=== PATIENT | female | born 1965 | race Caucasian/White ===

== ENCOUNTER 2018-09-24 10:40 | Emergency (ER) | payer SELFPAY ==
[2018-09-24 10:48] VITALS: BP 159/84
[2018-09-24] MEDS ORDERED: NEOMYCIN/POLYMYX/HC OTIC DROPS RIGHTEAR STA (12:09)
--- NOTE | 2018-09-24 12:09 | ED Physician Documentation ---
PD HPI HEENT - Stated complaint Stated Complaint: BILAT EAR PX - Chief complaint Chief Complaint: Heent - History obtained from History obtained from: Patient, Family - History of Present Illness Timing - onset: How many weeks ago (2) Timing - duration: Weeks (2) Timing - details: Gradual onset, Still present, Waxing and waning Location: Right ear, Sinuses Improves: Medication Worsens: Swalllowing Associated symptoms: Fever, Congestion, Swollen nodes, Facial swelling. No: Cough Similar symptoms before: Has not had sx before Recently seen: Not recently seen - Additional information Additional information: 53-year-old female prediabetic who does not going to see the doctor has developed pain in both of her ears. She has pain is worse in the right ear and this is fairly severe. She has pain with any touching of the outside of the year and she has a sensation of fluid in the year. She is subsequently developed some drainage down the back of her throat sinus congestion and no cough. 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 - Present Medications Home Medications: Ambulatory Orders Medication Instructions Recorded Confirmed Amox/Clav 875/125 [Augmentin] 1 each PO Q12H #20 tablet 09/24/18 Neomycin/Polymyx/Hc Otic Drops 4 drops RIGHTEAR TID #1 bottle 09/24/18 [Cortisporin Ear Susp] - Allergies Allergies/Adverse Reactions: Allergies Allergy/AdvReac Type Severity Reaction Status Date / Time albuterol Allergy Anaphylaxis Verified 09/24/18 10:48 Iodine and Iodide Containing Allergy Hives Verified 09/24/18 10:49 Produc - Social History Does the pt smoke?: No Smoking Status: Never smoker Does the pt drink ETOH?: No Does the pt have substance abuse?: No - Immunizations Immunizations are current?: Yes - POLST Patient has POLST: No PD ED PE NORMAL - Vitals Vital signs reviewed: Yes (hypertensive) - General General: Alert and oriented X 3, No acute distress, Well developed/nourished - HEENT HEENT: Atraumatic, PERRL, EOMI, Other (The right ear is tender to pull on the tragus or push on the pinna and there is inflamation into the ear canal. I am not able to see the TM secondary to cerumen and I am not able to remove the cerumen secondary to significant discomfort to the patient. The Left TM is clear and there is no significant pain to palpation of the ear. The pharynx shows deep red to the right tonsillar pillar with exudate and this is not present on the left. 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, No motor deficit, No sensory deficit, Normal speech Eye Opening: Spontaneous Motor: Obeys Commands Verbal: Oriented GCS Score: 15 - Psych Psych: Normal mood, Normal affect Results - Vitals Vitals: Vital Signs - 24 hr 09/24/18 10:45 Temperature 36.1 C L Heart Rate 84 Respiratory 16 Rate Blood Pressure 159/84 H O2 Saturation 97 Oxygen O2 Source Room air - Labs Labs: Laboratory Tests 09/24/18 10:55 Influenza A (Rapid) Negative Influenza B (Rapid) Negative PD MEDICAL DECISION MAKING - ED course Complexity details: considered differential, d/w patient, d/w family ED course: 53-year-old female with right otitis externa that is significantly painful and a lot of swelling in the canal she also has inflammation draining down the right side of her throat right behind the right tonsillar pillar consistent with drainage from the eustachian tube on that side. I am unable to see the TM on that side I suspect there is infection in the middle ear itself as well. A Munoz wick is placed into the ear and Cortisporin otic suspension is instilled. We will place her on some oral antibiotic as well. Departure - Departure Disposition: 01 Home, Self Care Clinical Impression: Otitis externa Qualifiers: Otitis externa type: unspecified type Chronicity: acute Laterality: right Qualified Code(s): H60.501 - Unspecified acute noninfective otitis externa, right ear Otitis media Qualifiers: Otitis media type: suppurative Chronicity: acute Laterality: right Recurrence: not specified as recurrent Spontaneous tympanic membrane rupture: without spontaneous rupture Qualified Code(s): H66.001 - Acute suppurative otitis media without spontaneous rupture of ear drum, right ear Condition: Stable Instructions: ED Otitis Externa Follow-Up: [facility] [Provider Group] Prescriptions: Amox/Clav 875/125 [Augmentin] 1 each PO Q12H #20 tablet Neomycin/Polymyx/Hc Otic Drops [Cortisporin Ear Susp] 4 drops RIGHTEAR TID #1 bottle
== END 2018-09-24 12:48 | disposition home or self-care (01) ==
LOC: ED 10:40
DX: H60.501 Unspecified acute noninfective otitis externa, right ear (principal); H66.001 Acute suppurative otitis media without spontaneous rupture of ear drum, right ear; E11.9 Type 2 diabetes mellitus without complications
CPT/HCPCS: 87275; 87276; 99283; A9270

== ENCOUNTER 2018-10-23 07:34 | Outpatient (CLI) | payer MEDICAID ==
[2018-10-23 12:34] LABS: BASOPHILS % (AUTO) 0.5 %; EOSINOPHILS # (AUTO) 0.2 10^3/uL (0.0-0.7); EOSINOPHILS % (AUTO) 3.2 %; HGB - HEMOGLOBIN 13.3 g/dL (12.0-16.0); LYMPHOCYTES # (AUTO) 2.7 10^3/uL (1.5-3.5); LYMPHOCYTES % (AUTO) 39.7 %; MEAN CORPUSCULAR HEMOGLOBIN 30.6 pg (27.0-31.0); MEAN CORPUSCULAR HGB CONC 32.9 g/dL (32.0-36.0); MEAN CORPUSCULAR VOLUME 93.1 fL (81.0-99.0); MEAN PLATELET VOLUME 8.3 fL (7.9-10.8); MONOCYTES # (AUTO) 0.6 10^3/uL (0.0-1.0); MONOCYTES % (AUTO) 8.8 %; NEUTROPHILS # (AUTO) 3.3 10^3/uL (1.5-6.6); NEUTROPHILS % (AUTO) 47.8 %; PLT - PLATELET COUNT 278 10^3/uL (130-450); RED BLOOD COUNT 4.34 10^6/uL (4.20-5.40); RED CELL DISTRIBUTION WIDTH 14.1 % (12.0-15.0); WHITE BLOOD COUNT 6.9 x10^3/uL (4.8-10.8)
[2018-10-23 13:39] LABS: HB2 TOTAL 14.4 g/dL; HEMOGLOBIN A1C 0.64 g/dL; HEMOGLOBIN A1C % 6.2 % (4.6-6.2)
[2018-10-23 13:50] LABS: ALBUMIN 3.5 g/dL (3.2-5.5); ALBUMIN/GLOBULIN RATIO 0.9 (1.0-2.2); ALKALINE PHOSPHATASE 103 IU/L (42-121); ALT ALANINE AMINOTRANSFERASE 18 IU/L (10-60); AST ASPARTATE AMINOTRANSFERASE 20 IU/L (10-42); BILIRUBIN,TOTAL 0.3 mg/dL (0.2-1.0); BUN - BLOOD UREA NITROGEN 19 mg/dL (6-20); CALCIUM 8.9 mg/dL (8.5-10.3); CARBON DIOXIDE - CO2 28 mmol/L (21-32); CHLORIDE 105 mmol/L (101-111); CHOL/HDL RATIO 5.1 (<4.4); CHOLESTEROL 210 mg/dL; CREATININE 0.8 mg/dL (0.4-1.0); GFR - MDRD 76 (>89); GLUCOSE 123 mg/dL (70-100); HDL CHOLESTEROL 41 mg/dL; LDL CHOLESTEROL,CALCULATED 142 mg/dL; LDL/HDL RATIO 3.5 (<4.4); SODIUM 142 mmol/L (135-145); TOTAL PROTEIN 7.5 g/dL (6.7-8.2); VLDL CHOLESTEROL 27 mg/dL
[2018-10-23 13:59] LABS: THYROID STIMULATING HORMONE 1.2 uIU/mL (0.34-5.60)
[2018-10-23 14:10] LABS: FOLATE 7.71 ng/mL (5.90 - >24.8)
[2018-10-27 14:01] LABS: ANA SCREEN POSITIVE (NEGATIVE)
== END 2018-10-23 23:59 | disposition home or self-care (01) ==
LOC: LAB.N 07:34
PROVIDERS: ATTEND Nurse Practitioner
DX: E78.2 Mixed hyperlipidemia (principal); E55.9 Vitamin D deficiency, unspecified; R53.83 Other fatigue; R73.03 Prediabetes; E04.1 Nontoxic single thyroid nodule
CPT/HCPCS: 36415; 80050; 80061; 82306; 82607; 82746; 83036; 83721; 86038

== ENCOUNTER 2018-11-04 13:36 | Outpatient (CLI) | payer MEDICAID | END 2018-11-04 13:37 | disposition home or self-care (01) | LOC: DI.N 13:36 | PROVIDERS: ATTEND Nurse Practitioner | DX: Z12.31 Encounter for screening mammogram for malignant neoplasm of breast (principal) | CPT/HCPCS: 77067 ==

== ENCOUNTER 2018-12-11 07:36 | Outpatient (CLI) | payer MEDICAID ==
--- NOTE | 2018-12-11 12:23 | Ultrasound Report ---
Reason: THYROID NODULE,RIGHT Procedure Date: 12/11/2018 Accession Number: [id number] / [id number] Procedure: US - Head or Neck Soft Tissue CPT Code: FULL RESULT: EXAM: THYROID ULTRASOUND EXAM DATE: 12/11/2018 08:23 AM. CLINICAL HISTORY: Thyroid nodule, right. COMPARISON: None. TECHNIQUE: Real time sonographic imaging of the thyroid was performed by the purchasing director. Multiple employee relations representative static images were saved for review. FINDINGS: THYROID GLAND: Right Lobe: 5.5 x 2.6 x 2.4 cm, volume 17.9 cc. Normal background echotexture. Right Lobe Nodules: Superior pole 2.8 x 2.0 x 2.3 predominantly cystic nodule and 1.4 x 1.1 x 1.5 cm inferior pole cyst. Left Lobe: 5.4 x 2.0 x 1.3 cm, volume 7.3 cc. Normal background echotexture. Left Lobe Nodules: Tiny cyst as well as a 1.2 x 0.9 x 1.1 cm cyst in the upper pole. Isthmus: 0.7 cm AP. Isthmic Nodules: None. LYMPH NODES: No adenopathy demonstrated in the central or lateral compartment. OTHER: None. IMPRESSION: Cysts in the thyroid appear simple, and therefore benign. The right superior pole nodule warrants tissue sampling by size criteria. According to the patient, fine-needle aspiration sampling with benign pathology results was performed in [place] 1.5 years ago. If this is the case, no further follow-up is required. Management recommendations are based on 2015 [place] [employer] Management Guidelines for Adult Patients with Thyroid Nodules and Differentiated Thyroid Cancer. RADIA
== END 2018-12-11 07:37 | disposition home or self-care (01) ==
LOC: DI 07:36
PROVIDERS: ATTEND Nurse Practitioner
DX: E04.1 Nontoxic single thyroid nodule (principal)
CPT/HCPCS: 76536

== ENCOUNTER 2018-12-22 10:33 | Outpatient (CLI) | payer MEDICAID | END 2018-12-22 10:34 | disposition home or self-care (01) | LOC: SC 10:33 | PROVIDERS: ATTEND Internal Medicine Pulmonary Disease | DX: G47.33 Obstructive sleep apnea (adult) (pediatric) (principal) | CPT/HCPCS: 99203; 99212 ==

== ENCOUNTER 2019-01-08 10:25 | Outpatient (CLI) | payer MEDICAID ==
--- NOTE | 2019-01-08 12:24 | XRAY Report ---
Reason: LUMBAR Procedure Date: 01/08/2019 Accession Number: [id number] / [id number] Procedure: XRN - Lumbar Spine 2 View CPT Code: FULL RESULT: EXAM: LUMBOSACRAL SPINE RADIOGRAPHY EXAM DATE: 01/08/2019 10:49 AM. CLINICAL HISTORY: Pain for 2 weeks. No trauma. COMPARISONS: None. TECHNIQUE: 3 views. FINDINGS: Alignment: Normal. No spondylolisthesis or scoliosis. Bones: Five [id number] lumbar vertebral bodies are present. No fractures or bone lesions. Disks: Normal. Disk heights are maintained. Facets: Mild facet arthropathy seen at L4 and L5. Sacroiliac Joints: Unremarkable. Soft Tissues: Normal. The visualized bowel gas pattern is normal. IMPRESSION: Mild degenerative changes. RADIA
== END 2019-01-08 10:26 | disposition home or self-care (01) ==
LOC: DI.N 10:25
PROVIDERS: ATTEND Family Medicine
DX: M47.816 Spondylosis without myelopathy or radiculopathy, lumbar region (principal)
CPT/HCPCS: 72100

== ENCOUNTER 2019-02-01 19:21 | Outpatient (CLI) | payer MEDICAID | END 2019-02-01 19:22 | disposition home or self-care (01) | LOC: SC 19:21 | PROVIDERS: ATTEND Internal Medicine Pulmonary Disease | DX: G47.61 Periodic limb movement disorder (principal) | CPT/HCPCS: 95810 ==

== ENCOUNTER 2019-02-06 11:43 | Outpatient (CLI) | payer MEDICAID | END 2019-02-06 11:44 | disposition home or self-care (01) | LOC: RT 11:43 | PROVIDERS: ATTEND Internal Medicine Gastroenterology | DX: I10 Essential (primary) hypertension (principal) | CPT/HCPCS: 93005 ==

== ENCOUNTER 2019-02-10 12:41 | Day surgery (SDC) | payer MEDICAID ==
--- NOTE | 2019-02-10 13:15 | ANESTHESIA ---
Pre-Anesthesia VS, & Labs - Diagnosis gerd, screening - Procedure egd, colonoscopy Vital Signs: Temp Pulse Resp BP Pulse Ox 36.6 C 88 12 129/60 97 02/10/19 13:06 02/10/19 13:06 02/10/19 13:06 02/10/19 13:06 02/10/19 13:06 Height 5 ft 4 in Weight (kg) 138.8 kg Body Mass Index 48.0 - NPO >8 hours - Is Patient ?: Not Applicable Home Medications and Allergies Home Medications: Ambulatory Orders Duloxetine HCl [Cymbalta] 60 mg PO DAILY 02/06/19 Gabapentin 300 mg PO QPM 02/06/19 Ibuprofen [Motrin Ib] 200 mg PO Q6H PRN 02/06/19 Lisinopril 5 mg PO DAILY 02/06/19 Meloxicam 15 mg PO DAILY 02/06/19 Metformin HCl 500 mg PO BID 02/06/19 Methocarbamol [Robaxin-750] 750 mg PO QID PRN 02/06/19 Omega3/Dha/Epa/Fish Oil/Vit D3 [Fish Oil-Vit D3 Softgel] 1 each PO DAILY 02/06/19 Omeprazole 20 mg PO DAILY 02/06/19 Ranitidine HCl [Acid Control] 150 mg PO DAILY PRN 02/06/19 Simvastatin 10 mg PO QPM 02/06/19 Duloxetine HCl [Cymbalta] 60 mg PO DAILY 02/06/19 Gabapentin 300 mg PO QPM 02/06/19 Ibuprofen [Motrin Ib] 200 mg PO Q6H PRN 02/06/19 Lisinopril 5 mg PO DAILY 02/06/19 Meloxicam 15 mg PO DAILY 02/06/19 Metformin HCl 500 mg PO BID 02/06/19 Methocarbamol [Robaxin-750] 750 mg PO QID PRN 02/06/19 Omega3/Dha/Epa/Fish Oil/Vit D3 [Fish Oil-Vit D3 Softgel] 1 each PO DAILY 02/06/19 Omeprazole 20 mg PO DAILY 02/06/19 Ranitidine HCl [Acid Control] 150 mg PO DAILY PRN 02/06/19 Simvastatin 10 mg PO QPM 02/06/19 Allergies/Adverse Reactions: Allergies Allergy/AdvReac Type Severity Reaction Status Date / Time albuterol Allergy Anaphylaxis Verified 09/24/18 10:48 Iodine and Iodide Containing Allergy Hives Verified 09/24/18 10:49 Produc niacin Allergy Hives Verified 02/06/19 12:03 Anes History & Medical History - Anesthetic History Anesthesia Complications: reports: No previous complications Family history of Anesthesia Complications: Denies Family history of Malignant Hyperthermia: Denies - Medical History Cardiovascular: reports: Hypertension, High cholesterol Pulmonary: reports: Asthma, Shortness of breath, Sleep apnea Gastrointestinal: reports: GERD Urinary: reports: Other Musculoskeletal: reports: Osteoarthritis, Fibromyalgia, Chronic back pain Endocrine/Autoimmune: reports: Type 2 diabetes, HyPOthyroidism Skin: reports: None Smoking Status: Never smoker - Surgical History General: Cholecystectomy Gynecologic: Tubal ligation Exam General: Alert, Oriented x3, Cooperative, No acute distress Dental: WNL Mouth Openin Fingerbreadth Neck Mobility: Normal Mallampati classification: IV Thyromental Distance: 4-6 cm Respiratory: Lungs clear, Normal breath sounds, No respiratory distress, No accessory muscle use Cardiovascular: Normal S1, Normal S2 Plan Anesthesia Type: MAC Consent for Procedure(s) Verified and Reviewed: Yes Code Status: Attempt Resuscitation ASA classification: 3-Severe systemic disease Is this case an emergency?: No
[2019-02-10] MEDS ORDERED: LIDO GARGLE 30 ML BOTTLE PO ONE (14:26)
[2019-02-10] MEDS ORDERED: LACTATED RINGERS 1,000 ML IV ONE (14:27)
[2019-02-10] MEDS ORDERED: LIDO GARGLE 30 ML BOTTLE ONE (14:31)
[2019-02-10] MEDS ORDERED: LIDOCAINE-MPF 2% 5 ML VIAL IM ONE (15:12)
[2019-02-10] MEDS ORDERED: PROPOFOL 200 MG/20 ML VIAL IVP ONE (15:12)
[2019-02-10 15:37] VITALS: BP 130/64
== END 2019-02-10 12:42 | disposition home or self-care (01) ==
LOC: SDS 12:41
PROVIDERS: ATTEND Internal Medicine Gastroenterology
PROC: 0DJD8ZZ Inspection of Lower Intestinal Tract, Via Natural or Artificial Opening Endoscopic (ICD-10-PCS; 2019-02-10)
PROC: 0DB38ZX Excision of Lower Esophagus, Via Natural or Artificial Opening Endoscopic, Diagnostic (ICD-10-PCS; principal; 2019-02-10 13:45)
PROC: 0DB78ZX Excision of Stomach, Pylorus, Via Natural or Artificial Opening Endoscopic, Diagnostic (ICD-10-PCS; 2019-02-10 13:45)
DX: Z12.11 Encounter for screening for malignant neoplasm of colon (principal); K21.9 Gastro-esophageal reflux disease without esophagitis; K31.9 Disease of stomach and duodenum, unspecified; K57.30 Diverticulosis of large intestine without perforation or abscess without bleeding; I10 Essential (primary) hypertension; J45.909 Unspecified asthma, uncomplicated; E78.2 Mixed hyperlipidemia; G47.33 Obstructive sleep apnea (adult) (pediatric); E03.9 Hypothyroidism, unspecified; E11.42 Type 2 diabetes mellitus with diabetic polyneuropathy; F32.9 Major depressive disorder, single episode, unspecified; E55.9 Vitamin D deficiency, unspecified; F41.9 Anxiety disorder, unspecified; L68.0 Hirsutism; E66.01 Morbid (severe) obesity due to excess calories; Z68.43 Body mass index [BMI] 50.0-59.9, adult; M79.7 Fibromyalgia; G89.29 Other chronic pain; M54.9 Dorsalgia, unspecified; M19.90 Unspecified osteoarthritis, unspecified site; M54.16 Radiculopathy, lumbar region; R79.89 Other specified abnormal findings of blood chemistry; Z79.1 Long term (current) use of non-steroidal anti-inflammatories (NSAID); Z79.84 Long term (current) use of oral hypoglycemic drugs; Z87.891 Personal history of nicotine dependence
CPT/HCPCS: 43239; 45378; A9270; J7120

== ENCOUNTER 2019-03-09 09:15 | Outpatient (CLI) | payer MEDICAID ==
--- NOTE | 2019-03-09 09:45 | CONSULTATION NOTE ---
Information from patient questionnaire entered by Eva Moya. I have reviewed and concur with the information entered by Eva Moya. This document represents the service I personally performed and the decisions made by me, Saadia Brennan MD, [facility]. - History of Present Illness HPI: Ms. Rosario returned for follow up of the sleep study she had on 02/01/19. The polysomnography showed that the patient had slightly reduced sleep efficiency due to sleep onset insomnia. The sleep architecture was abnormal for sleep fragmentation and lack of REM sleep. Respiratory monitoring showed no significant sleep disordered breathing (AHI = 0.0) or hypoxia (antonia oxygen saturation of 93%). The patient slept mostly supine (supine AHI = 0.0; non- supine = 0.00). Snore was loud in intensity. There was mild periodic leg movement of sleep not contributing to the sleep fragmentation. Cardiac rhythm was normal sinus rhythm without significant arrhythmia. No abnormal behavior (parasomnia) observed during the night. The patient was informed of these findings. I explained to her that the sleep study was normal. The patient does not have restless leg syndrome to go along with the mild periodic leg movement of sleep. Initial Delight Sleepiness Scale score: 13 Current Delight Sleepiness Scale score: 16 - Allergies/Medications Allergies albuterol Allergy (Verified 09/24/18 10:48) Anaphylaxis Iodine and Iodide Containing Produc Allergy (Verified 09/24/18 10:49) Hives niacin Allergy (Verified 02/06/19 12:03) Hives Home Medications Cholecalciferol [Vitamin D3] 1 cap PO DAILY PM 02/25/19 [History Confirmed 02/25/19] Ubidecarenone [Co Q-10] 1 cap PO DAILY 02/25/19 [History Confirmed 02/25/19] Allergies and home medications reviewed: No - Review of Systems Review of systems same as previous: Yes - Impression IMPRESSION: 1. Obstructive Sleep Apnea-Hypopnea Syndrome, diagnosed in [place] by a home sleep apnea test (HSAT) but cannot be demonstrated on her recent in- laboratory polysomnography. The patient also slept on her back all night. Therefore, no treatment is indicated. - Plan PLAN: 1. Avoid weight again. 2. Return for follow up on as needed basis.
== END 2019-03-09 09:16 | disposition home or self-care (01) ==
LOC: SC 09:15
PROVIDERS: ATTEND Internal Medicine Pulmonary Disease
DX: G47.33 Obstructive sleep apnea (adult) (pediatric) (principal)
CPT/HCPCS: 99212

== ENCOUNTER 2019-08-17 11:26 | Outpatient (CLI) | payer MEDICAID ==
--- NOTE | 2019-08-17 15:07 | XRAY Report ---
Reason: HEEL PAIN Procedure Date: 08/17/2019 Accession Number: [id number] / [id number] Procedure: XRN - Calcaneus RT CPT Code: Final Report FULL RESULT: EXAM: RIGHT CALCANEUS RADIOGRAPHY EXAM DATE: 08/17/2019 11:52 AM. CLINICAL HISTORY: Heel pain. COMPARISON: None. TECHNIQUE: 2 views. FINDINGS: Bones: Moderate posterior calcaneal spurring with associated plantar enthesopathy. Minimal inferior calcaneal spurring. No fracture or dislocation visualized. Joints: Normal. No subluxations. Soft Tissues: Normal. No soft tissue swelling. IMPRESSION: Prominent posterior calcaneal enthesopathy. RADIA
== END 2019-08-17 11:27 | disposition home or self-care (01) ==
LOC: DI.N 11:26
PROVIDERS: ATTEND Nurse Practitioner Gerontology
DX: M77.31 Calcaneal spur, right foot (principal)

== ENCOUNTER 2019-09-04 14:29 | Emergency (ER) | payer MEDICAID ==
[2019-09-04 14:48] VITALS: BP 152/74
[2019-09-04] MEDS ORDERED: ACETAMINOPHEN 325 MG TABLET PO STA (15:58)
[2019-09-04] MEDS ORDERED: oxyCODONE 5 MG TABLET PO STA (15:58)
--- NOTE | 2019-09-04 16:01 | ED Physician Documentation ---
History of Present Illness - Stated complaint Stated Complaint: BACK PX - Chief complaint Chief Complaint: Back Pain - Additonal information Additional information: This is a 54-year-old female with history of chronic back pain who presents with recurrence/exacerbation of her back pain. She has had worsening of her back pain with left-sided sciatica for last week, things are getting a bit better when she has been taking Tylenol as well as methocarbamol, but today she bent over to do some laundry and when she stood back up she had a worsening of the left-sided pain that radiated down towards her foot. She denies numbness or weakness, but she states that it is hard for her to walk because of the pain. No difficulty urinating or defecating. She has had imaging done with her primary care provider in the last year which is reportedly unremarkable. 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 - Present Medications Home Medications: Ambulatory Orders Medication Instructions Recorded Confirmed Duloxetine HCl [Cymbalta] 60 mg PO DAILY 02/06/19 02/25/19 Gabapentin 3,400 mg PO QPM 02/06/19 02/25/19 Meloxicam 15 mg PO DAILY 02/06/19 02/25/19 Metformin HCl 500 mg PO BID 02/06/19 02/25/19 Omega3/Dha/Epa/Fish Oil/Vit D3 1 each PO DAILY 02/06/19 02/25/19 [Fish Oil-Vit D3 Softgel] Omeprazole 20 mg PO DAILY 02/06/19 02/25/19 lisinopriL [Lisinopril] 5 mg PO DAILY 02/06/19 02/25/19 Cholecalciferol [Vitamin D3] 1 cap PO DAILY PM 02/25/19 02/25/19 Ubidecarenone [Co Q-10] 1 cap PO DAILY 02/25/19 02/25/19 Cyclobenzaprine [Flexeril] 10 mg PO TID PRN #20 tablet 09/04/19 Lidocaine Patch 5% [Lidoderm Patch] 1 each TOP DAILY PRN #7 patch 09/04/19 - Allergies Allergies/Adverse Reactions: Allergies Allergy/AdvReac Type Severity Reaction Status Date / Time albuterol Allergy Anaphylaxis Verified 09/04/19 14:48 Iodine and Iodide Containing Allergy Hives Verified 09/04/19 14:48 Produc niacin Allergy Hives Verified 09/04/19 14:48 - Social History Does the pt smoke?: No Smoking Status: Never smoker Does the pt drink ETOH?: No Does the pt have substance abuse?: No - Immunizations Immunizations are current?: Yes - POLST Patient has POLST: No PD ED PE NORMAL - Vitals Vital signs reviewed: Yes - General General: Alert and oriented X 3 - HEENT HEENT: Atraumatic - Cardiac Cardiac: RRR - Respiratory Respiratory: No respiratory distress - Abdomen Abdomen: Normal bowel sounds - Back Back: No CVA TTP, No spinal TTP, Other (There is tenderness in the upper gluteal region on the left, and the lower paraspinous lumbar muscles. There is no midline tenderness. 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 She does not have any red flags that would raise my concern for more serious causes of back pain at this time. She is ambulatory, no fever, no cancer history, she is neurologically intact. No signs of cauda equina, infection. The location of her pain makes aortic pathology extremely unlikely. No urinary symptoms. After oxycodone and tylenol she is feeling somewhat improved, I discussed supportive care, PCP follow up, and she was discharged home with cyclobenzaprine and lidocaine patches. Departure - Departure Disposition: Home, Self Care Clinical Impression: Back pain Qualifiers: Back pain location: low back pain Chronicity: acute Back pain laterality: left Sciatica presence: with sciatica Sciatica laterality: sciatica of left side Qualified Code(s): M54.42 - Lumbago with sciatica, left side Condition: Good Instructions: ED Neck Back Pain General Follow-Up: Renetta Gallegos ARNP [Primary Care Provider] - Prescriptions: Cyclobenzaprine [Flexeril] 10 mg PO TID PRN #20 tablet PRN Reason: Spasms Lidocaine Patch 5% [Lidoderm Patch] 1 each TOP DAILY PRN #7 patch PRN Reason: Pain Comments: You were seen today for back pain. I am glad you are feeling a bit better after the medication. I am prescribing you 2 medications that you can try, use the lidocaine patch over the area of the most tenderness. The second is Flexeril which is a muscle relaxant type medication. This can be combined with Tylenol and ibuprofen, but you should not take it at the same time as the methocarbamol as both can be sedating. If you are having difficulty using the bathroom, numbness or weakness in your legs, fever or other concerning symptoms please return to the emergency department. Discharge Date/Time: 09/04/19 17:12
[2019-09-04] MEDS ORDERED: KETOROLAC 30 MG/ML VIAL IM STA (16:52)
[2019-09-04] MEDS ORDERED: LIDOCAINE PATCH 5% TOP STA (16:52)
== END 2019-09-04 17:12 | disposition home or self-care (01) ==
LOC: ED 14:29
DX: M54.42 Lumbago with sciatica, left side (principal); E11.9 Type 2 diabetes mellitus without complications; Z79.84 Long term (current) use of oral hypoglycemic drugs
CPT/HCPCS: 96372; 99283; 99284; A9270

== ENCOUNTER 2019-09-15 08:00 | Outpatient (CLI) | payer MEDICAID | END 2019-09-15 23:59 | disposition home or self-care (01) | LOC: LAB.R 08:00 | PROVIDERS: ATTEND Nurse Practitioner Gerontology | DX: J02.9 Acute pharyngitis, unspecified (principal) | CPT/HCPCS: 87070 ==

== ENCOUNTER 2020-06-15 08:00 | Outpatient (CLI) | payer MEDICAID ==
[2020-06-15 11:44] LABS: BASOPHILS % (AUTO) 0.5 %; EOSINOPHILS # (AUTO) 0.2 10^3/uL (0.0-0.7); EOSINOPHILS % (AUTO) 2.1 %; HGB - HEMOGLOBIN 12.5 g/dL (12.0-16.0); LYMPHOCYTES # (AUTO) 2.1 10^3/uL (1.5-3.5); LYMPHOCYTES % (AUTO) 26.5 %; MEAN CORPUSCULAR HGB CONC 30.7 g/dL (32.0-36.0); MEAN CORPUSCULAR VOLUME 94.4 fL (81.0-99.0); MEAN PLATELET VOLUME 9.8 fL (7.9-10.8); MONOCYTES # (AUTO) 0.5 10^3/uL (0.0-1.0); MONOCYTES % (AUTO) 6.4 %; NEUTROPHILS # (AUTO) 5.2 10^3/uL (1.5-6.6); NEUTROPHILS % (AUTO) 64.3 %; PLT - PLATELET COUNT 297 10^3/uL (130-450); RED BLOOD COUNT 4.31 10^6/uL (4.20-5.40); RED CELL DISTRIBUTION WIDTH 14.6 % (12.0-15.0); WHITE BLOOD COUNT 8.1 x10^3/uL (4.8-10.8)
[2020-06-15 11:53] LABS: ALBUMIN 3.6 g/dL (3.2-5.5); ALBUMIN/GLOBULIN RATIO 0.8 (1.0-2.2); ALKALINE PHOSPHATASE 99 IU/L (42-121); ALT ALANINE AMINOTRANSFERASE 14 IU/L (10-60); AST ASPARTATE AMINOTRANSFERASE 17 IU/L (10-42); BILIRUBIN,TOTAL 0.4 mg/dL (0.2-1.0); BUN - BLOOD UREA NITROGEN 15 mg/dL (6-20); CALCIUM 9.3 mg/dL (8.5-10.3); CARBON DIOXIDE - CO2 29 mmol/L (21-32); CHLORIDE 103 mmol/L (101-111); CHOL/HDL RATIO 4.3 (<4.4); CHOLESTEROL 222 mg/dL; CREATININE 0.8 mg/dL (0.4-1.0); GLUCOSE 143 mg/dL (70-100); HDL CHOLESTEROL 52 mg/dL; LDL CHOLESTEROL,CALCULATED 150 mg/dL; LDL/HDL RATIO 2.9 (<4.4); SODIUM 141 mmol/L (135-145); TOTAL PROTEIN 7.9 g/dL (6.7-8.2); VLDL CHOLESTEROL 20 mg/dL
[2020-06-15 12:53] LABS: HEMOGLOBIN A1c% 6.8 % (4.27-6.07)
== END 2020-06-15 23:59 | disposition home or self-care (01) ==
LOC: LAB.WCP 08:00
PROVIDERS: ATTEND Physician Assistant
DX: E11.40 Type 2 diabetes mellitus with diabetic neuropathy, unspecified (principal); E78.2 Mixed hyperlipidemia
CPT/HCPCS: 36415; 80053; 80061; 83036; 83721; 85025

== ENCOUNTER 2020-12-28 11:49 | Outpatient (CLI) | payer MEDICAID ==
[2020-12-28 18:05] LABS: CALCIUM 9.5 mg/dL (8.5-10.3); CREATININE 0.9 mg/dL (0.4-1.0); POTASSIUM 3.7 mmol/L (3.5-5.0)
[2020-12-28 19:24] LABS: ESTIMATED AVERAGE GLUCOSE 154 mg/dL (70-100)
== END 2020-12-28 11:50 | disposition home or self-care (01) ==
LOC: LAB.N 11:49
PROVIDERS: ATTEND Nurse Practitioner Family
DX: E11.42 Type 2 diabetes mellitus with diabetic polyneuropathy (principal)
CPT/HCPCS: 36415; 80048; 83036

== ENCOUNTER 2021-05-15 08:00 | Outpatient (CLI) | payer MEDICAID | END 2021-05-15 23:59 | disposition home or self-care (01) | LOC: LAB.N 08:00 | PROVIDERS: ATTEND Physician Assistant Medical | DX: R05 Cough (principal); Z20.822 Contact with and (suspected) exposure to COVID-19 ==

== ENCOUNTER 2021-06-26 08:14 | Outpatient (CLI) | payer MEDICAID ==
[2021-06-26 12:00] LABS: BASOPHILS # (AUTO) 0.1 10^3/uL (0.0-0.1); BASOPHILS % (AUTO) 0.7 %; EOSINOPHILS # (AUTO) 0.2 10^3/uL (0.0-0.7); EOSINOPHILS % (AUTO) 2.1 %; HCT - HEMATOCRIT 41.6 % (37.0-47.0); HGB - HEMOGLOBIN 12.5 g/dL (12.0-16.0); LYMPHOCYTES # (AUTO) 2.4 10^3/uL (1.5-3.5); LYMPHOCYTES % (AUTO) 27.5 %; MEAN CORPUSCULAR HEMOGLOBIN 28.4 pg (27.0-31.0); MEAN CORPUSCULAR VOLUME 94.5 fL (81.0-99.0); MEAN PLATELET VOLUME 9.8 fL (7.9-10.8); MONOCYTES # (AUTO) 0.5 10^3/uL (0.0-1.0); MONOCYTES % (AUTO) 5.8 %; NEUTROPHILS # (AUTO) 5.5 10^3/uL (1.5-6.6); NEUTROPHILS % (AUTO) 63.6 %; PLT - PLATELET COUNT 335 10^3/uL (130-450); RED CELL DISTRIBUTION WIDTH 15.9 % (12.0-15.0); WHITE BLOOD COUNT 8.7 x10^3/uL (4.8-10.8)
[2021-06-26 12:22] LABS: THYROID STIMULATING HORMONE 2.17 uIU/mL (0.34-5.60)
[2021-06-26 12:31] LABS: ALBUMIN 3.6 g/dL (3.2-5.5); ALBUMIN/GLOBULIN RATIO 0.8 (1.0-2.2); ALKALINE PHOSPHATASE 101 IU/L (42-121); ALT ALANINE AMINOTRANSFERASE 15 IU/L (10-60); AST ASPARTATE AMINOTRANSFERASE 14 IU/L (10-42); BILIRUBIN,TOTAL 0.5 mg/dL (0.2-1.0); BUN - BLOOD UREA NITROGEN 17 mg/dL (6-20); CALCIUM 9.6 mg/dL (8.5-10.3); CARBON DIOXIDE - CO2 30 mmol/L (21-32); CHLORIDE 101 mmol/L (101-111); CHOL/HDL RATIO 3.4 (<4.4); CHOLESTEROL 153 mg/dL; CREATININE 0.9 mg/dL (0.4-1.0); GFR - MDRD 65 (>89); GLUCOSE 109 mg/dL (70-100); HDL CHOLESTEROL 45 mg/dL; LDL CHOLESTEROL,CALCULATED 84 mg/dL; LDL/HDL RATIO 1.9 (<4.4); SODIUM 142 mmol/L (135-145); TOTAL PROTEIN 8.1 g/dL (6.7-8.2); TRIGLYCERIDES 122 mg/dL; VLDL CHOLESTEROL 24 mg/dL
[2021-06-26 12:42] LABS: CREATININE,URINE 307.6 mg/dL; ESTIMATED AVERAGE GLUCOSE 140 mg/dL (70-100); HEMOGLOBIN A1c% 6.5 % (4.27-6.07); MICROALBUM/CREATININE RATIO,UR 4.2 ug/mg (<30.0); MICROALBUMIN,URINE 1.3 mg/dL (0-300.0)
== END 2021-06-26 08:15 | disposition home or self-care (01) ==
LOC: LAB.N 08:14
PROVIDERS: ATTEND Internal Medicine
DX: E11.42 Type 2 diabetes mellitus with diabetic polyneuropathy (principal); E04.1 Nontoxic single thyroid nodule
CPT/HCPCS: 36415; 80050; 80061; 82043; 82570; 83036; 83721

== ENCOUNTER 2021-07-10 08:00 | Outpatient (CLI) | payer MEDICAID ==
[2021-07-10 19:49] LABS: RHEUMATOID FACTOR NEGATIVE (Negative)
[2021-07-12 23:21] LABS: ANA PATTERN Nuclear, Homogeneous; ANA SCREEN POSITIVE (NEGATIVE)
== END 2021-07-10 23:59 | disposition home or self-care (01) ==
LOC: LAB.WCP 08:00
PROVIDERS: ATTEND Internal Medicine
DX: M25.549 Pain in joints of unspecified hand (principal)
CPT/HCPCS: 36415; 85651; 86038; 86140; 86200; 86430

== ENCOUNTER 2021-07-24 16:52 | Outpatient (CLI) | payer MEDICAID ==
--- NOTE | 2021-07-25 13:55 | XRAY Report ---
PROCEDURE: Ankle 2 View BILAT INDICATIONS: ANKLE ARTHRALGIA TECHNIQUE: 3 views of each ankle were acquired. COMPARISON: None. FINDINGS: Bones: No fractures or dislocations. Ankle mortise demonstrates preserved alignment bilaterally. Th ere are bilateral posterior calcaneal enthesophytes as well as small plantar enthesophytes. No suspic ious bony lesions. Soft tissues: No tibiotalar joint effusion. Achilles tendons appear intact with linear calcificatio ns along the distal tendons bilaterally which may represent displaced enthesophytes or peritendinitis . IMPRESSION: 1. No fracture or dislocation. 2. Tibial talar joints appear preserved. 3. Linear calcifications along the distal Achilles tendons bilaterally may reflect displaced enthesop hytes or calcific tendinitis. Reviewed by: Scout Khan MD on 07/25/2021 12:53 PM [facility] Approved by: Scout Khan MD on 07/25/2021 12:53 PM [facility] Station ID: [id number]
== END 2021-07-24 23:59 ==
LOC: DI.N 16:52
PROVIDERS: ATTEND Internal Medicine
DX: M25.571 Pain in right ankle and joints of right foot (principal); M25.572 Pain in left ankle and joints of left foot; M65.872 Other synovitis and tenosynovitis, left ankle and foot; M65.871 Other synovitis and tenosynovitis, right ankle and foot